=== PATIENT | female | born 1990 | race African-American/Black ===

== ENCOUNTER 2020-10-22 20:08 | Emergency (ER) | payer OTHER ==
[2020-10-22] MEDS ORDERED: Ketorolac Tromethamine 30 MG/ML VIAL ONE (20:32)
== END 2020-10-22 20:40 | disposition home or self-care (01) ==
LOC: BURERS 20:08
DX: M76.61 Achilles tendinitis, right leg (principal); F17.210 Nicotine dependence, cigarettes, uncomplicated
CPT/HCPCS: 96372; 99283; J1885

== ENCOUNTER 2021-07-19 22:39 | Emergency (ER) | payer OTHER | END 2021-07-19 23:50 | disposition left against medical advice (07) | LOC: BURERS 22:39 | DX: N76.0 Acute vaginitis (principal); F17.200 Nicotine dependence, unspecified, uncomplicated | CPT/HCPCS: 99283 ==

== ENCOUNTER 2021-08-06 00:12 | Emergency (ER) | payer OTHER | END 2021-08-06 01:15 | disposition left against medical advice (07) | LOC: BURERS 00:12 | DX: Z53.21 Procedure and treatment not carried out due to patient leaving prior to being seen by health care provider (principal) ==

== ENCOUNTER 2021-08-06 15:31 | Emergency (ER) | payer OTHER ==
[2021-08-06] MEDS ORDERED: cefTRIAXone\\ROCEPHIN 1 GM VIAL ONE (15:46)
[2021-08-06] MEDS ORDERED: Azithromycin 250 MG TAB ONE (15:47)
== END 2021-08-06 15:57 | disposition home or self-care (01) ==
LOC: BURERS 15:31
DX: N89.8 Other specified noninflammatory disorders of vagina (principal)
CPT/HCPCS: 96372; 99283; J0696

== ENCOUNTER 2021-08-31 07:22 | Emergency (ER) | payer OTHER ==
[2021-08-31 08:25] LABS: Bilirubin Negative (Negative); Blood, Urine Trace (Negative); Clarity Clear (Clear); Glucose, Urine (Dipstick) Negative (Negative); Ketone, Urine Negative (Negative); Leukocyte Negative (Negative); Nitrite Negative (Negative); Protein, Urine (Dipstick) Negative (Neg-Trace); Urobilinogen 0.2 mg/dL (Less than 2)
[2021-08-31 08:27] LABS: Specific Gravity, Urine 1.003 (1.002-1.036)
[2021-08-31 08:28] LABS: Pregnancy Test - Urine (BHCG) Negative (Negative); Pregu Control Background? CLEAR/WHITE (CLR/WHITE); Pregu Control Bar Appear? YES (CONTROL BAR); Specific Gravity 1.003 (1.002-1.036)
[2021-08-31 08:32] LABS: Bacteria/HPF Rare-Few HPF (None Seen); RBC/HPF 0-3 HPF (0-3); Squamous Epithelial 0-3 HPF (0-3); WBC/HPF 0-3 HPF (0-3)
[2021-08-31 15:44] LABS: Chlamydia by PCR Not Detected (NotDetected); GC by PCR Not Detected (NotDetected)
== END 2021-08-31 08:34 | disposition home or self-care (01) ==
LOC: BURERS 07:22
DX: N76.0 Acute vaginitis (principal); B96.89 Other specified bacterial agents as the cause of diseases classified elsewhere
CPT/HCPCS: 81003; 81015; 81025; 87086; 87480; 87491; 87510; 87591; 87660; 99284

== ENCOUNTER 2021-10-05 19:45 | Emergency (ER) | payer OTHER | END 2021-10-05 20:10 | disposition home or self-care (01) | LOC: BURERS 19:45 | DX: B34.9 Viral infection, unspecified (principal); Z20.822 Contact with and (suspected) exposure to COVID-19 | CPT/HCPCS: 99283; U0003; U0005 ==